=== PATIENT | male | born 1960 | race Caucasian/White ===

== ENCOUNTER 2017-12-31 08:46 | Emergency (ER) | payer BC, OTHER ==
[~2017-12-31] VITALS: Ht 177.8 cm; Wt 91.6 kg
[2017-12-31 08:57] VITALS: Ht 177.8 cm; Wt 91.6 kg
[2017-12-31 11:09] VITALS: BP 139/89
== END 2017-12-31 11:08 | disposition home or self-care (01) ==
LOC: ED 08:46
DX: S16.1XXA Strain of muscle, fascia and tendon at neck level, initial encounter (principal); E11.9 Type 2 diabetes mellitus without complications; V43.52XA Car driver injured in collision with other type car in traffic accident, initial encounter; Y93.I9 Activity, other involving external motion; Y92.488 Other paved roadways as the place of occurrence of the external cause; Y99.8 Other external cause status